=== PATIENT | female | born 1970 | race Caucasian/White ===

== ENCOUNTER 2022-07-09 19:43 | Emergency (ER) | payer MEDICAID ==
[~2022-07-09] VITALS: Ht 160 cm; Wt 78.0 kg
[2022-07-09 19:44] VITALS: BP 180/109
--- NOTE | 2022-07-09 19:45 | NUR ---
PT [facility] BED 1
--- NOTE | 2022-07-09 20:00 | NUR ---
Patient arrived by EMs, on nebulized treatment at 8L/Min. Patient is resting in bed, on monitor, A/Ox4, chest rise and fall symmetrical, no s/s of distress. Addendum: 07/09/22 at 2004 by [email or web address] Patient arrived by EMS, on nebulized treatment at 8L/Min. Patient is resting in bed, on monitor, A/Ox4, chest rise and fall symmetrical, no s/s of distress.
--- NOTE | 2022-07-09 20:02 | NUR ---
Patient states that patient was at home resting and she "had a cough," with persistently got worse and patient eventually had trouble breathing. Patient stated her rescue inhaler did not help.
--- NOTE | 2022-07-09 20:10 | NUR ---
Patient is resting in bed, on monitor, A/Ox4, chest rise and fall symmetrical, no s/s of distress.
[2022-07-09] MEDS ORDERED: ALBUTEROL SULFATE/IPRATROPIU 3 ML SOL IH ONE (20:55)
[2022-07-09] MEDS ORDERED: predniSONE 20 MG TAB PO ONE (20:55)
--- NOTE | 2022-07-09 21:15 | NUR ---
Patient is resting in bed, on monitor, A/Ox4, chest rise and fall symmetrical, no c/o pain or s/s of distress.
--- NOTE | 2022-07-09 21:43 | NUR ---
RT with patient. RT stated patient "had duo-neb earlier from ambulance and patient is doing ok."
[2022-07-09] MEDS ORDERED: PRED20TA5 PO (21:46)
[2022-07-09] MEDS ORDERED: ALBU0.0912 IH (21:47)
--- NOTE | 2022-07-09 22:02 | NUR ---
Patient is resting in bed, on monitor, A/Ox4, chest rise and fall symmetrical, no c/o pain or s/s of distress.
[2022-07-09 22:18] VITALS: BP 137/91
== END 2022-07-09 22:18 | disposition home or self-care (01) ==
LOC: MED 19:43
DX: J45.901 Unspecified asthma with (acute) exacerbation (principal)
CPT/HCPCS: 99283; J7512

== ENCOUNTER 2022-10-09 18:55 | Inpatient (IN) | payer MEDICAID ==
[~2022-10-09] VITALS: Ht 160 cm; Wt 102.5 kg
[~2022-10-09 18:55] MED LIST: ALBU0.0912 IH; PRED20TA5 PO
[2022-10-09 19:12] VITALS: BP 130/85
--- NOTE | 2022-10-09 19:17 | NUR ---
PT W/C ASSISTED TO BED 5
[2022-10-09] MEDS ORDERED: NACL 0.9% 1,000 ML IV ONE (20:10)
[2022-10-09] MEDS ORDERED: KETOROLAC 15 MG/ML VIAL IVP ONE (20:10)
[2022-10-09] MEDS ORDERED: IPRATROPIUM 0.02% 0.5 MG/2.5 ML NEBU INH ONE (20:10)
[2022-10-09] MEDS ORDERED: ALBUTEROL 0.083% 2.5 MG/3 ML NEBU INH ONE (20:10)
--- NOTE | 2022-10-09 20:33 | NUR ---
52YR OLD FEMALE BIB SELF C/O SOB CP X1DAY. PT HAS A HX OF ASTHMA. PT STATES HAVING A MILD COUGH WITH SOME PHELGM. HOB ELEVATED RESP EVEN AND UNLABORED. PT ON BEDSIDE MONITOR. DENIES FEVER N/V/D. SKIN IS WARM AND DRY . BED AT LOWEST POSITION SIDE RAILS UP X2 CODIENE ASTHMA
[2022-10-09 20:51] LABS: BASOPHILS # (AUTO) 0.2 K/uL (0.00-0.22); BASOPHILS % (AUTO) 1.2 % (0.0-2.0); EOSINOPHILS # (AUTO) 0.2 K/uL (0-0.4); EOSINOPHILS % (AUTO) 1.3 % (0.0-4.0); HEMATOCRIT 41.6 % (36-48); HEMOGLOBIN 13.6 g/dL (12.0-16.0); LYMPHOCYTES # (AUTO) 1.9 K/uL (2.5-16.5); LYMPHOCYTES % (AUTO) 13.1 % (20.5-51.1); MEAN CORPUSCULAR HEMOGLOBIN 30 pg (27-31); MEAN CORPUSCULAR HGB CONC 33 g/dL (33-37); MEAN CORPUSCULAR VOLUME 91.3 fL (80-94); MONOCYTES # (AUTO) 0.8 K/uL (0.8-1.0); MONOCYTES % (AUTO) 5.1 % (1.7-9.3); NEUTROPHILS # (AUTO) 11.8 K/uL (1.8-7.7); NEUTROPHILS % (AUTO) 79.3 % (42.2-75.2); PLATELET COUNT (AUTO) 179 K/uL (140-450); RED BLOOD CELL COUNT(AUTO) 4.55 MIL/uL (4.20-5.40); RED CELL DISTRIBUTION WIDTH 14.8 % (11.6-13.7); WHITE BLOOD COUNT (AUTO) 14.9 K/uL (4.8-10.8)
[2022-10-09] MEDS ORDERED: predniSONE 20 MG TAB PO ONE (21:05)
[2022-10-09 21:07] LABS: ALBUMIN 3.9 g/dL (3.4-5.0); ANION GAP 11.6 (8-16); CARBON DIOXIDE 28.1 mmol/L (21-32); CREATININE 0.9 mg/dL (0.6-1.3); POTASSIUM 3.7 mmol/L (3.5-5.1); TOTAL BILIRUBIN 0.8 mg/dL (0.0-1.0)
[2022-10-09] MEDS ORDERED: MORPHINE SULFATE 2 MG/ML SYR IVP STA (22:01)
[2022-10-09] MEDS ORDERED: AZITHROMYCIN 500 MG in DEXTROSE 5% 250 ML IV ONE (22:05)
[2022-10-09] MEDS ORDERED: ASPIRIN 325 MG TAB PO ONE (22:05)
[2022-10-09] MEDS ORDERED: cefTRIAXone 1,000 MG VIAL ONE (22:11)
[2022-10-09] MEDS ORDERED: VANCOMYCIN PER PHARMACY MC PRN (22:35)
[2022-10-09] MEDS ORDERED: AZITHROMYCIN 500 MG INJ VIAL IV ONE (22:36)
[2022-10-09] MEDS ORDERED: VANCOMYCIN 1,000 MG in DEXTROSE 5% 250 ML IV SCH (23:10)
[2022-10-10] MEDS ORDERED: TAP5 PO (00:28)
[2022-10-10] MEDS ORDERED: ADAL40KI1 SUBQ (00:39)
[2022-10-10] MEDS ORDERED: VITA1TAB44 PO (00:39)
[2022-10-10] MEDS ORDERED: GABA300C PO (00:39)
[2022-10-10] MEDS: NACL 0.9% 1,000 ML IV SCH ×4 (00:46→22:38)
[2022-10-10] MEDS: PIPERACILLIN/TAZOBACTAM 3.375 GM in DEXTROSE 5% 50 ML IV SCH ×3 (01:01→13:00)
--- NOTE | 2022-10-10 01:55 | NUR ---
RIGHT A/C IV IS POSITIONAL. 20G IV ESTABLISHED LEFT F/A
--- NOTE | 2022-10-10 03:40 | NUR ---
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 HOB ELEVATED.
--- NOTE | 2022-10-10 03:45 | NUR ---
PT IS ADMITED FOR TELE. PENDING BED ASSIG. MED RECONCILE COMPLETED. COVID SWAB COLLECTED AND SENT
--- NOTE | 2022-10-10 05:48 | NUR ---
PT AWAKE IN BED WITH HOB ELEVATED. DENIES SOB OR CP AT THIS TIME. VS WNL. PENDING BED ASSIG
--- NOTE | 2022-10-10 07:30 | NUR ---
REPORT RECEIVED FROM ROSANGELA RAY. ASSUMED CARE AT THIS TIME
[2022-10-10] MEDS ORDERED: PIPERACILLIN/TAZOBACTAM 3.375 GM VIAL IV ONE (07:34)
[2022-10-10] MEDS ORDERED: MAG SULF 2000 MG/WATER PREMIX 50 ML IV PRN (08:00)
--- NOTE | 2022-10-10 09:24 | NUR ---
PATIENT HAS BEEN SCREENED AND CATEGORIZED MODERATE NUTRITION RISK. PATIENT WILL BE SEEN WITHIN 3-5 DAYS OF ADMISSION. 10/09/22-10/14/[address]
--- NOTE | 2022-10-10 09:25 | NUR ---
Admitted from , with chief complaint of , 52 y/o ,Female, Appropriate, oriented to call light, bed, phone,television, bathroom, smoking policy, visiting hours, procedures, ID bracelet on. Belongings list checked. RECEIVED PATIENT FROM ER VIA GURNEY BY ONE OF MAGDA TATE VSS , ON IV FLUID N/S 0.9% 125CC/H SKIN INTACT , NO EDEMA , ON NASAL CANNULA 3 LITER O2 , SAFETY PROACTION IN PLACE , SIDE RAILS UP X3 BED IN LOWER POSITION , CALL LIGHT WITHIN REACH , NO COMPLAIN AT THIS TIME ,PATIENT STILL UNDER OBSERVE .
[2022-10-10] MEDS ORDERED: VANCOMYCIN 1,500 MG in DEXTROSE 5% 500 ML IV SCH (10:00)
[2022-10-10] MEDS ORDERED: VANCOMYCIN 1,500 MG in NACL 0.9% 500 ML IV SCH (10:00)
[2022-10-10] MEDS ORDERED: MUPIROCIN CA NASAL 2% 1GM TUBE NS SCH (10:45)
[2022-10-10] MEDS ORDERED: VANCOMYCIN 1GM/DEXT 5% PREMIX 200 ML IV SCH (11:00)
[2022-10-10 12:16] VITALS: BP 142/70
--- NOTE | 2022-10-10 12:36 | NUR ---
NURSES NOTE PATIENT A/OX4 , VSS , ON NASAL CANNULA O2 3LITER , ON IV FLUID N/S 0.9% 125CC/H NPO , FOR OBSERVE .
[2022-10-10] MEDS ORDERED: ACETAMINOPHEN 325 MG TAB PO PRN (14:45)
[2022-10-10] MEDS ORDERED: ZOLPIDEM 10 MG TAB PO PRN (14:45)
[2022-10-10] MEDS ORDERED: POTASSIUM CHLORIDE 10 MEQ TABER PO PRN (14:45)
[2022-10-10] MEDS ORDERED: MORPHINE SULFATE 2 MG/ML SYR IVP PRN (14:45)
[2022-10-10] MEDS ORDERED: DOCUSATE SODIUM 100 MG GELCAP PO PRN (14:45)
[2022-10-10] MEDS ORDERED: LORazepam 2 MG/ML VIAL IVP PRN (14:45)
[2022-10-10] MEDS ORDERED: ONDANSETRON 4 MG/2 ML VIAL IVP PRN (14:45)
[2022-10-10 16:03] VITALS: BP 130/80
[2022-10-10] MEDS: AZITHROMYCIN 500 MG in DEXTROSE 5% 250 ML IV SCH (16:38)
--- NOTE | 2022-10-10 17:01 | NUR ---
NURSES NOTE PATIENT A/OX4 , VSS , SINUS ON MONITOR ,ON NASAL CANNULA O2 3 LITER , NPO AMBULATORY , CONTINENT X2, ON IV FLUID N/S 0.9% 125CC/H , SKIN INTACT , SAFETY PROACTION ON PLACE , SIDE RAILS UP X3 BED IN LOWER POSITION , CALL LIGHT WITHIN REACH , NO COMPLAIN AT THIS TIME , STILL UNDER OBSERVE .
--- NOTE | 2022-10-10 19:00 | NUR ---
REPORT GIVEN TO ALMA PRIEST ALL HER QUESTION ANSWER
[2022-10-10 20:00] VITALS: BP 143/78
[2022-10-10] MEDS: methylPREDNISolone SS 40 MG/ML VIAL IVP SCH (21:00)
[2022-10-11] VITALS: BP 137/80
[2022-10-11 04:00] VITALS: BP 144/74
[2022-10-11] MEDS: NACL 0.9% 1,000 ML IV SCH ×3 (04:39→23:00)
[2022-10-11 05:42] LABS: BASOPHILS # (AUTO) 0.1 K/uL (0.00-0.22); BASOPHILS % (AUTO) 0.7 % (0.0-2.0); EOSINOPHILS % (AUTO) 0.1 % (0.0-4.0); HEMOGLOBIN 12.1 g/dL (12.0-16.0); LYMPHOCYTES # (AUTO) 0.8 K/uL (2.5-16.5); LYMPHOCYTES % (AUTO) 7.7 % (20.5-51.1); MEAN CORPUSCULAR HEMOGLOBIN 30 pg (27-31); MEAN CORPUSCULAR HGB CONC 33 g/dL (33-37); MEAN CORPUSCULAR VOLUME 91.1 fL (80-94); MONOCYTES # (AUTO) 0.2 K/uL (0.8-1.0); MONOCYTES % (AUTO) 1.5 % (1.7-9.3); NEUTROPHILS # (AUTO) 9.8 K/uL (1.8-7.7); PLATELET COUNT (AUTO) 175 K/uL (140-450); RED BLOOD CELL COUNT(AUTO) 4.06 MIL/uL (4.20-5.40); RED CELL DISTRIBUTION WIDTH 14.5 % (11.6-13.7); WHITE BLOOD COUNT (AUTO) 10.9 K/uL (4.8-10.8)
[2022-10-11 06:28] LABS: ANION GAP 5.9 (8-16); CARBON DIOXIDE 33.5 mmol/L (21-32); CREATININE 0.8 mg/dL (0.6-1.3); POTASSIUM 4.4 mmol/L (3.5-5.1)
--- NOTE | 2022-10-11 07:20 | NUR ---
RECEIVED REPORT FROM NIGHTSHIFT NURSE. PT IS AWAKE, RESTING IN BED. AAOX4, STABLE, WITH NO SIGNS OF DISTRESS.
[2022-10-11 08:00] VITALS: BP 112/67
[2022-10-11] MEDS: methylPREDNISolone SS 40 MG/ML VIAL IVP SCH ×2 (09:04→21:06)
[2022-10-11] MEDS: ENOXAPARIN 40 MG/0.4 ML SYR SUBQ SCH (09:04)
[2022-10-11 12:00] VITALS: BP 138/80
[2022-10-11 16:00] VITALS: BP 129/74
--- NOTE | 2022-10-11 16:20 | NUR ---
DC PLANNING ASSESSMENT COMPLETE PLEASE REFER TO ASSESSMENT FOR ADDITIONAL DETAILS PT IS A 52 YR OLD FEMALE ADMITTED TO [facility] FROM HOME WITH DX OF PNEUMONIA AND ELEVATED TROPONIN. PT HAS PAST MEDICAL HX OF ASTHMA AND RHEUMATOID ARTHRITIS PT RESIDES IN A SINGLE STORY HOME WITH HER FIANCE AND ADULT DAUGHTER, AT THE ADDRESS LISTED ON FILE. PT INQUIRED ON HOME O2, SPOKE WITH PT ON HOW HOME O2 IS TYPICALLY ARRANGED. PT VERBALIZED UNDERSTANDING AND REPORTS SHE WILL SPEAK TO ATTENDING PHYSICIAN. PT REPORTS DC PLAN IS TO RETURN HOME WITH FAMILY PROVIDING TRANSPORTATION, ONCE MEDICALLY STABLE. Addendum: 10/11/22 at 1621 by Jannet MARI Amended: Links added.
[2022-10-11] MEDS: AZITHROMYCIN 500 MG in DEXTROSE 5% 250 ML IV SCH (16:38)
--- NOTE | 2022-10-11 19:26 | NUR ---
GAVE REPORT TO NIGHTSHIFT NURSE. PT IS RESTING IN BED, NO SIGNS OF DISTRESS.
--- NOTE | 2022-10-11 19:30 | NUR ---
RECEIVED PATIENT ON THE BED, NO SIGNS OF DISTRESS NOTED, CALL LIGHT WITHIN REACH.
[2022-10-11 20:00] VITALS: BP 141/85
--- NOTE | 2022-10-11 21:07 | NUR ---
SCHEDULED MEDICATION GIVEN ORDERED. PATIENT IS WATCHING TV, DENIES SOB, DENIES CHEST PAIN. CALL LIGHT WITHIN REACH.
[2022-10-12] VITALS: BP 148/87
--- NOTE | 2022-10-12 03:32 | NUR ---
PATIENT IS AWAKE, WATCHING TV, PATIENT DENIES CHEST PAIN, NO SOB NOTED, CALL LIGHT WITHIN REACH.
[2022-10-12 04:00] VITALS: BP 139/85
[2022-10-12 05:47] LABS: BASOPHILS # (AUTO) 0.1 K/uL (0.00-0.22); BASOPHILS % (AUTO) 0.8 % (0.0-2.0); EOSINOPHILS % (AUTO) 0.3 % (0.0-4.0); HEMATOCRIT 36.4 % (36-48); HEMOGLOBIN 11.9 g/dL (12.0-16.0); LYMPHOCYTES # (AUTO) 1.3 K/uL (2.5-16.5); LYMPHOCYTES % (AUTO) 14.9 % (20.5-51.1); MEAN CORPUSCULAR HEMOGLOBIN 30 pg (27-31); MEAN CORPUSCULAR HGB CONC 33 g/dL (33-37); MEAN CORPUSCULAR VOLUME 91.3 fL (80-94); MONOCYTES # (AUTO) 0.2 K/uL (0.8-1.0); MONOCYTES % (AUTO) 2.6 % (1.7-9.3); NEUTROPHILS # (AUTO) 7.3 K/uL (1.8-7.7); NEUTROPHILS % (AUTO) 81.4 % (42.2-75.2); PLATELET COUNT (AUTO) 178 K/uL (140-450); RED BLOOD CELL COUNT(AUTO) 3.99 MIL/uL (4.20-5.40); RED CELL DISTRIBUTION WIDTH 14.5 % (11.6-13.7)
[2022-10-12 06:07] LABS: ANION GAP 8.8 (8-16); CARBON DIOXIDE 30.2 mmol/L (21-32); CREATININE 0.7 mg/dL (0.6-1.3)
[2022-10-12] MEDS: NACL 0.9% 1,000 ML IV SCH ×3 (06:32→22:45)
--- NOTE | 2022-10-12 06:47 | NUR ---
PATIENT IS AWAKE, DENIES PAIN/CHEST PAIN, ON O2 @3LPM NC, DENIES SOB. NEEDS MET THROUGHOUT THE SHIFT, PATIENT IN STABLE CONDITION. WILL ENDORSE TO DAY NURSE FOR CONTINUITY OF CARE.
[2022-10-12 08:00] VITALS: BP 142/81
[2022-10-12] MEDS: ENOXAPARIN 40 MG/0.4 ML SYR SUBQ SCH (08:37)
[2022-10-12] MEDS: methylPREDNISolone SS 40 MG/ML VIAL IVP SCH ×2 (08:37→20:42)
[2022-10-12 12:00] VITALS: BP 128/85
--- NOTE | 2022-10-12 15:15 | NUR ---
10/12/22 RD INITIAL ASSESSMENT COMPLETED PLEASE REFER TO NUTRITION ASSESSMENT UNDER CARE ACTIVITY FOR ESTIMATED NUTRITIONAL NEEDS. 1. CONTINUE CARDIAC DIET, TOLERATED 2. EDUCATED PT ON GENERAL HEART HEALTHY NUTRITION THERAPY, AND PROVIDED HANDOUT. 3. MONITOR GI, PO INTAKE, AND LAB VALUES. 4. RD TO FOLLOW-UP 3-5 DAYS, MODERATE RISK REVIEWED BY LB KWOK RD
[2022-10-12 16:00] VITALS: BP 141/82
[2022-10-12] MEDS: AZITHROMYCIN 500 MG in DEXTROSE 5% 250 ML IV SCH (17:28)
--- NOTE | 2022-10-12 19:15 | NUR ---
RECEIVED PATIENT SITTING AT THE EDGE OF THE BED, FAMILY AT BEDSIDE, PATIENT IS ALERT AND ORIENTED X4, PATIENT DENIES CHEST PAIN, DENIES SOB. NS RUNNING @125ML/HR ON LEFT FOREARM ACCESS SITE, G20. CALL LIGHT WITHIN REACH
[2022-10-12 20:00] VITALS: BP 134/89
--- NOTE | 2022-10-12 20:43 | NUR ---
SCHEDULED MEDICATIONS GIVEN ORDERED.
[2022-10-13] VITALS: BP 168/93
--- NOTE | 2022-10-13 00:30 | NUR ---
VITALS TAKEN T 97.7, P 57, BP 168/93, RESP 18, O2 97%. PATIENT DENIES CHEST, DENIES SOB. CALL LIGHT WITHIN REACH.
[2022-10-13] MEDS: NACL 0.9% 1,000 ML IV SCH (03:40)
[2022-10-13 04:00] VITALS: BP 149/87
[2022-10-13 05:37] LABS: BASOPHILS # (AUTO) 0.1 K/uL (0.00-0.22); BASOPHILS % (AUTO) 0.9 % (0.0-2.0); EOSINOPHILS % (AUTO) 0.1 % (0.0-4.0); HEMOGLOBIN 12.3 g/dL (12.0-16.0); LYMPHOCYTES # (AUTO) 2.4 K/uL (2.5-16.5); LYMPHOCYTES % (AUTO) 26.2 % (20.5-51.1); MEAN CORPUSCULAR HEMOGLOBIN 30 pg (27-31); MEAN CORPUSCULAR HGB CONC 33 g/dL (33-37); MEAN CORPUSCULAR VOLUME 90.4 fL (80-94); MONOCYTES # (AUTO) 0.2 K/uL (0.8-1.0); MONOCYTES % (AUTO) 2.2 % (1.7-9.3); NEUTROPHILS # (AUTO) 6.5 K/uL (1.8-7.7); NEUTROPHILS % (AUTO) 70.6 % (42.2-75.2); PLATELET COUNT (AUTO) 223 K/uL (140-450); RED BLOOD CELL COUNT(AUTO) 4.09 MIL/uL (4.20-5.40); RED CELL DISTRIBUTION WIDTH 14.1 % (11.6-13.7); WHITE BLOOD COUNT (AUTO) 9.2 K/uL (4.8-10.8)
[2022-10-13 06:00] LABS: ANION GAP 7.2 (8-16); CARBON DIOXIDE 32.5 mmol/L (21-32); CREATININE 0.6 mg/dL (0.6-1.3); POTASSIUM 3.7 mmol/L (3.5-5.1)
--- NOTE | 2022-10-13 07:11 | NUR ---
ENDORSED PATIENT TO DAY NURSE FOR CONTINUITY OF CARE. NEEDS MET THROUGHOUT THE SHIFT. PATIENT IN STABLE CONDITION.
[2022-10-13 08:00] VITALS: BP 142/83
[2022-10-13] MEDS: methylPREDNISolone SS 40 MG/ML VIAL IVP SCH (08:36)
[2022-10-13] MEDS: ENOXAPARIN 40 MG/0.4 ML SYR SUBQ SCH (08:42)
[2022-10-13] MEDS ORDERED: PRED20TA5 PO (11:40)
[2022-10-13] MEDS ORDERED: CEPH-588 PO (11:41)
[2022-10-13 11:49] VITALS: BP 119/74
[2022-10-13 12:00] VITALS: BP 139/87
[2022-10-13 16:00] VITALS: BP 181/118
[2022-10-13] MEDS: AZITHROMYCIN 500 MG in DEXTROSE 5% 250 ML IV SCH (17:08)
--- NOTE | 2022-10-13 17:10 | NUR ---
Contacted Dr. Fishman, made aware about elevated BP 181/118. Pt. verbalized that she wound like to go home regardless. She has no h/o HTN but may be because of nervousness or excitement her BP is elevated. She also mentioned that she has f/u appointment with PMD in a week, she will let her MD know about it. Dr. Fishman made aware. acknowledged and approved DC home.
[2022-10-13] MEDS ORDERED: lisinopriL 20 MG TAB PO SCH (17:25)
--- NOTE | 2022-10-13 17:55 | NUR ---
Inserted midline to KELVIN (double lumen) Addendum: 10/13/22 at 1807 by Agency Nurse CEM Lino RN wrong entry
--- NOTE | 2022-10-13 18:08 | NUR ---
Administer Lisinopril 20 mg x 1 PO. BP is 186/78. Cont. to monitor.
--- NOTE | 2022-10-13 18:48 | NUR ---
Pt. DC home with at bedside. Current BP 162/74. BP is trending down. Pt stated she wants to leave now and will monitor BP at home. No c/o pain and acute distress noted.
[2022-10-14] MEDS ORDERED: methylPREDNISolone SS 40 MG/ML VIAL IVP SCH (09:00)
== END 2022-10-13 18:40 | disposition home or self-care (01) | DRG 720 ==
LOC: MED 18:55 → MTU 22:40 → MMU 10-10 08:08
PROVIDERS: ADMIT Family Medicine; ATTEND Family Medicine
DX: A41.9 Sepsis, unspecified organism (principal); J96.01 Acute respiratory failure with hypoxia; D84.9 Immunodeficiency, unspecified; J18.9 Pneumonia, unspecified organism; J45.901 Unspecified asthma with (acute) exacerbation; E87.1 Hypo-osmolality and hyponatremia; M06.9 Rheumatoid arthritis, unspecified; E66.9 Obesity, unspecified; J45.909 Unspecified asthma, uncomplicated; Z68.41 Body mass index [BMI] 40.0-44.9, adult; J98.11 Atelectasis; Z20.822 Contact with and (suspected) exposure to COVID-19; R07.89 Other chest pain; Z88.5 Allergy status to narcotic agent; Z87.891 Personal history of nicotine dependence
CPT/HCPCS: 36415; 71045; 71250; 80048; 80053; 80202; 83036; 83605; 83735; 83880; 84484; 85025; 87040; 87081; 96361; 96365; 96367; 96375; 99285; J0456; J0696; J1650; J1885; J2270; J2543; J2920; J3370; J7030; J7060; J7512; J7613; J7644; Q0092